=== PATIENT | female | born 1985 | race Caucasian/White ===

== ENCOUNTER 2017-02-05 15:29 | Emergency (ER) | payer SELFPAY ==
[~2017-02-05] VITALS: Ht 165.1 cm; Wt 56.7 kg
[2017-02-05 16:42] LABS: *URINE HCG, QUAL NEGATIVE (NEGATIVE)
[2017-02-05] MEDS ORDERED: IBUPROFEN 800 MG TABLET PO ONE (16:45)
[2017-02-05] MEDS ORDERED: IBUPROFEN 800 MG TABLET ONE (17:01)
--- NOTE | 2017-02-05 17:51 | NUR ---
Patient discharged to home in stable conditon. Written and verbal after care instructions given. RX IBUPROFEN and Zofran given as ordered. Work Note excuses also provided.Patient verbalizes understanding of instructions. No further questions or concerns noted prior on leaving the ED.
[2017-02-05 17:52] VITALS: BP 118/74
== END 2017-02-05 17:53 | disposition home or self-care (01) ==
LOC: ER 15:38
DX: F07.81 Postconcussional syndrome (principal); S16.1XXA Strain of muscle, fascia and tendon at neck level, initial encounter; S39.012A Strain of muscle, fascia and tendon of lower back, initial encounter; R11.2 Nausea with vomiting, unspecified; R51 Headache; V89.2XXA Person injured in unspecified motor-vehicle accident, traffic, initial encounter; Y93.89 Activity, other specified; Y99.8 Other external cause status; Y92.89 Other specified places as the place of occurrence of the external cause
CPT/HCPCS: 70450; 72125; 84703; 99284; A4663